=== PATIENT | female | born 1950 | race Caucasian/White ===

== ENCOUNTER → 2022-01-09 | Outpatient (CLI) | payer MEDICARE ==
[~2022-01-09] MED LIST: ANAS1TAB2; DULO1CAP5; NYST10CR; PROL60SO SC; SYNT150T; TRIA37.5
== END ==
LOC: EDSEX 09:05 → M LABSMTC 09:17
PROVIDERS: ATTEND Anesthesiology
DX: Z01.812 Encounter for preprocedural laboratory examination (principal); Z20.822 Contact with and (suspected) exposure to COVID-19

== ENCOUNTER 2022-01-14 08:19 | Day surgery (SDC) | payer MEDICARE ==
[~2022-01-14] VITALS: Ht 162.6 cm; Wt 109.2 kg
[~2022-01-14 08:19] MED LIST changes: +LIDOCAINE 2% 100MG/5ML SDV (FOR ANES.) As Ordered ONE; +LR 1,000 ML IV ONE; +MIDAZOLAM INJ 2MG/2ML VIAL (J2250 PER 1MG) As Ordered ONE; +ONDANSETRON 4MG/2ML VIAL As Ordered ONE; +fentaNYL 100 MCG/2 ML INJECTION As Ordered ONE; +propofoL 200 MG/20 ML VIAL As Ordered ONE
[2022-01-14] MEDS ORDERED: CLINDAMYCIN 900 MG in IV 1 EA IV ONE (08:50)
[2022-01-14] MEDS ORDERED: CALC600T60 PO (09:17)
[2022-01-14] MEDS ORDERED: dexameTHASONE 4 MG/ML 1ML VIAL (J1100 PER 1MG) As Ordered ONE (10:10)
[2022-01-14] MEDS ORDERED: LIDOCAINE 2% MDV 20ML VIAL As Ordered ONE (10:10)
[2022-01-14] MEDS ORDERED: BUPIVACAINE HCL 0.5% 30ML VIAL As Ordered ONE (10:10)
[2022-01-14] MEDS ORDERED: propofoL 200 MG/20 ML VIAL As Ordered ONE (11:07)
[2022-01-14] MEDS ORDERED: ePHEDrine SULFATE 25 MG/5 ML(5MG/ML) SYRINGE As Ordered ONE (11:08)
[2022-01-14] MEDS ORDERED: PHENYLephrine 500MCG 5ML (100MCG/ML) SYRINGE As Ordered ONE (11:08)
[2022-01-14] MEDS ORDERED: HYDR-3713 PO (12:16)
[2022-01-14] MEDS ORDERED: oxyCODONE 5MG TAB PO PRN (12:35)
[2022-01-14] MEDS ORDERED: LR 1,000 ML IV SCH (12:35)
[2022-01-14] MEDS ORDERED: ONDANSETRON 4MG/2ML VIAL IV PRN (12:35)
[2022-01-14] MEDS ORDERED: fentaNYL 100 MCG/2 ML INJECTION IV PRN (12:35)
[2022-01-14 13:39] VITALS: BP 186/84
== END 2022-01-14 14:15 | disposition home or self-care (01) ==
LOC: EDSEX → M SDC 08:19
PROVIDERS: ATTEND Podiatrist Foot & Ankle Surgery
DX: M20.12 Hallux valgus (acquired), left foot (principal); M20.42 Other hammer toe(s) (acquired), left foot; I10 Essential (primary) hypertension; E03.9 Hypothyroidism, unspecified; Z80.3 Family history of malignant neoplasm of breast; Z92.21 Personal history of antineoplastic chemotherapy; Z79.811 Long term (current) use of aromatase inhibitors; Z88.0 Allergy status to penicillin
CPT/HCPCS: 28232; 28285; 28299; 88300; C1713; J1100; J2250; J2370; J2405; J3010

== ENCOUNTER → 2023-10-05 | Outpatient (REF) | payer MEDICARE ==
[~2023-10-05] MED LIST changes: +CALC600T60 PO; +HYDR-3713 PO; -LIDOCAINE 2% 100MG/5ML SDV (FOR ANES.) As Ordered ONE; -LR 1,000 ML IV ONE; -MIDAZOLAM INJ 2MG/2ML VIAL (J2250 PER 1MG) As Ordered ONE; +NYST-13; -NYST10CR; -ONDANSETRON 4MG/2ML VIAL As Ordered ONE; -fentaNYL 100 MCG/2 ML INJECTION As Ordered ONE; -propofoL 200 MG/20 ML VIAL As Ordered ONE
[2023-10-05 12:19] LABS: HEMATOCRIT 36.1 % (36.0-47.0); HEMOGLOBIN 11.2 g/dl (12.0-15.5); MEAN CORPUSCULAR HEMOGLOBIN 30.3 pg (27.0-33.0); MEAN CORPUSCULAR VOLUME 97.6 fl (80.0-96.0); PLATELET COUNT, AUTOMATED 260 10^3/uL (150-450); WHITE BLOOD COUNT 5.6 10^3/uL (4.0-10.0)
[2023-10-05 12:24] LABS: THYROID STIMULATING HORMONE 2.788 uIU/ML (0.55-4.78)
[2023-10-05 12:25] LABS: ALBUMIN 3.8 G/DL (3.2-5.2); BILIRUBIN,TOTAL 0.4 MG/DL (0.3-1.2); CALCIUM LEVEL 8.7 MG/DL (8.3-10.6); CHOLESTEROL RISK RATIO 3.74 (<5); CREATININE FOR GFR 1.66 MG/DL (0.55-1.30); FREE T4 1.36 NG/DL (0.89-1.76); GLOMERULAR FILTRATION RATE 32.1 (>39); HDL CHOLESTEROL 50.5 MG/DL (>40); LDL CHOLESTEROL 108.9 MG/DL (<100); NON-HDL-C 138.5 MG/DL; TOTAL PROTEIN 6.7 G/DL (5.7-8.2)
== END ==
LOC: M SFHCCLAY 08:25
PROVIDERS: ATTEND Family Medicine
DX: I10 Essential (primary) hypertension (principal); E03.9 Hypothyroidism, unspecified; E78.2 Mixed hyperlipidemia